=== PATIENT | female | born 1940 | race Caucasian/White ===

== ENCOUNTER 2018-07-29 11:52 | Outpatient (CLI) | payer MEDICARE, OTHER | END 2018-07-29 11:53 | disposition home or self-care (01) | LOC: BICRAD 11:52 | PROVIDERS: ATTEND Internal Medicine Gastroenterology | DX: K21.9 Gastro-esophageal reflux disease without esophagitis (principal); R10.13 Epigastric pain; R10.2 Pelvic and perineal pain; R14.0 Abdominal distension (gaseous); R19.8 Other specified symptoms and signs involving the digestive system and abdomen; R63.8 Other symptoms and signs concerning food and fluid intake | CPT/HCPCS: 71046 ==